=== PATIENT | female | born 1980 | race Caucasian/White ===

== ENCOUNTER → 2019-04-20 | Outpatient (CLI) | payer BC | LOC: COL.VAS 14:01 | DX: M79.661 Pain in right lower leg (principal) ==

== ENCOUNTER 2019-12-25 10:44 | Emergency (ER) | payer BC ==
[~2019-12-25] VITALS: Ht 180.3 cm; Wt 104.5 kg
[2019-12-25 10:57] VITALS: BP 110/71; TEMP 98
[2019-12-25 13:02] VITALS: PULSE 107
== END 2019-12-25 13:02 | disposition home or self-care (01) ==
LOC: COL.ER 10:44
DX: H92.02 Otalgia, left ear (principal)

== ENCOUNTER 2023-01-21 17:56 | Inpatient (IN) | payer BC ==
[~2023-01-21] VITALS: Ht 180.3 cm; Wt 113.6 kg
[2023-01-21 18:31] LABS: BASO % 0.2 % (0.0-2.0); EOS % 0.1 % (0.0-4.0); GRAN % 88.8 % (42.2-75.2); HEMATOCRIT 39.7 % (37.0-47.0); HEMOGLOBIN 13.2 g/dl (12.5-16.0); LYMPH # 1.3 K/mm3 (1.2-3.4); LYMPH % 7.3 % (20.0-51.0); MEAN CELL VOLUME 85 fl (80.0-100.0); MEAN CORPUSCULAR HEMOGLOBIN 28 pg (27-31); MEAN CORPUSCULAR HGB CONC 33 g/dl (33.0-37.0); MEAN PLATELET VOLUME 8.8 fl (7.4-10.4); MONO # 0.6 K/mm3 (0.1-0.6); MONO % 3.3 % (1.7-9.3); PLATELET COUNT 552 K/mm3 (130-400); REDCELL DISTRIBUTION WIDTH-CV 14.3 % (11.5-14.5)
[2023-01-21 18:45] LABS: COLLECTION METHOD CLEAN CATCH
[2023-01-21 18:54] LABS: MUCOUS Present (NOT PRESENT); URINE APPEARANCE Cloudy (CLEAR/HAZY); URINE BACTERIA Rare /hpf (NONE SEEN); URINE COLOR Yellow (YELLOW); URINE RBC 0-2 /hpf (0-2)
[2023-01-21 18:55] LABS: PH 5.5 (5-8); URINE BLOOD TRACE-LYSED (NEGATIVE); URINE GLUCOSE Negative (NEGATIVE); URINE KETONE 2+ (NEGATIVE); URINE NITRATE Negative (NEGATIVE); URINE PROTEIN(semi-quant) 2+ (NEGATIVE)
[2023-01-21 19:06] LABS: CALCIUM 9.7 mg/dL (8.4-10.2); CREATININE, serum 0.99 mg/dL (0.57-1.11); POTASSIUM 3.2 mmol/L (3.5-4.5); TOTAL PROTEIN 7.9 gm/dL (6.2-8.1)
[2023-01-21] MEDS ORDERED: ATIVAN 0.50.5 MG/TAB PO (20:55)
[2023-01-21 21:22] LABS: CHOLESTEROL RISK RATIO 2.9
[2023-01-21 21:23] VITALS: BP 140/80; PULSE 97; TEMP 98.6
--- NOTE | 2023-01-21 21:23 | NUR ---
RECEIVED REPORT FROM Anjel MUNOZ, ERROL. WAITING FOR PATIENT ARRIVAL TO UNIT FOR ADMIT TO ROOM 331.
--- NOTE | 2023-01-21 21:36 | NUR ---
PATIENT ARRIVE TO ROOM 331 PER W/C TRANSPORTED BY Anjel MUNOZ. INT SITE TO [facility] IN PLACE. REPORTS SOME PAIN TO EPIGASTRIC AREA OF 8/10.
[2023-01-21 22:50] LABS: INR 1.2 (0.8-3.0); PROTHROMBIN TIME 13.5 SECONDS (9.7-12.8)
[2023-01-21 23:20] VITALS: BP 125/70; PULSE 84; TEMP 98.9
--- NOTE | 2023-01-22 02:21 | NUR ---
PATIENT REPORTS PAIN LEVEL OF 7/10, REFUSED OFFER OF PAIN MEDS AT THIS TIME, ENCOURAGED PATIENT TO LET RN KNOW IF SHE CHANGES HER MIND AND WANTS PAIN MEDS. PATIENT UP IN ROOM TO BATHROOM WITH NO REPORTED PROBLEMS OR COMPLAINTS. DENIES NAUSEA AT THIS TIME.
[2023-01-22 03:17] VITALS: BP 120/74; PULSE 97; TEMP 98.2
[2023-01-22 06:44] LABS: BASO % 0.1 % (0.0-2.0); EOS % 0.1 % (0.0-4.0); GRAN # 12.6 K/mm3 (1.4-6.5); HEMOGLOBIN 11.7 g/dl (12.5-16.0); LYMPH # 1.4 K/mm3 (1.2-3.4); LYMPH % 9.6 % (20.0-51.0); MEAN CELL VOLUME 85 fl (80.0-100.0); MEAN CORPUSCULAR HEMOGLOBIN 29 pg (27-31); MEAN CORPUSCULAR HGB CONC 34 g/dl (33.0-37.0); MONO # 0.6 K/mm3 (0.1-0.6); MONO % 3.9 % (1.7-9.3); PLATELET COUNT 490 K/mm3 (130-400); REDCELL DISTRIBUTION WIDTH-CV 14.5 % (11.5-14.5)
[2023-01-22 06:50] LABS: HEMATOCRIT 34.8 % (37.0-47.0)
[2023-01-22 07:00] LABS: ALBUMIN 3.5 gm/dL (3.5-5.0); CALCIUM 8.8 mg/dL (8.4-10.2); CREATININE, serum 0.86 mg/dL (0.57-1.11); POTASSIUM 3.6 mmol/L (3.5-4.5); TOTAL PROTEIN 6.7 gm/dL (6.2-8.1)
--- NOTE | 2023-01-22 07:13 | NUR ---
CHANGE OF SHIFT REPORT GIVEN TO DAY SHIFT RNGUILLERMINA.
[2023-01-22 07:19] VITALS: BP 127/82; PULSE 95; TEMP 98.9
--- NOTE | 2023-01-22 09:20 | NUR ---
Initial visit; Patient thanked Voice Instructor for looking in on her and offering prayer and God's blessings. Patient has been experiencing pain and nausea. Voice Instructor will follow up with Rosalie.
--- NOTE | 2023-01-22 09:51 | NUR ---
Patient was admitted to [facility] on 01-21-23. Drywall Metal Stud Worker met with Patient at bedside to conduct CAre Managment Assessment and discuss discharge planning. PAtient verrified that she lives alone in [place], [place] and that the best familial point of contact is her mother, Zoey. PAtient reports that her PC Is Dr. Ventura and that her insurance carrier is [employer]. Patient states that [facility] is her preferred pharmacy. Patient denies the use of O2, DME, and home health services prior to admission. Patient reports that she is not interested in advanced directives at this time.
[2023-01-22 11:24] VITALS: BP 128/75; PULSE 94; TEMP 98.9
[2023-01-22 15:47] VITALS: BP 131/83; PULSE 99; TEMP 99.3
--- NOTE | 2023-01-22 19:00 | NUR ---
Shift summary: Pt Ox4, VSS, afebrile. Pain to epigastric/mid-abdominal area with decreasing pain throughout shift. Continued on IV dilaudid as NPO was d/c at 1700. IV Fluid continues, decreased to 75ml/hr per order once started on CLD. Pt tolerates diet order well.
[2023-01-22 19:41] VITALS: BP 132/81; PULSE 95; TEMP 98
--- NOTE | 2023-01-22 21:00 | NUR ---
PT RESTING IN BED. HOB ELEVATED. PT HAS A VERY FLAT AFFECT. PT RELATES SHE IS SAD. PT NOT SURE IF SHE SHOULD GET HER GB DONE WHILE SHE'S IS HERE. PT DENIES NAUSEA OR ABD PAIN. BUT C/O HEADACHE. GAVE TYLENOL. PT GIVING VERY SLOW FLAT TWO WORD ANSWER. UP TO BR. VOIDED. NO OTHER NEEDS AT THIS TIME. CALL LIGHT IN REACH.
[2023-01-22 23:14] VITALS: BP 141/78; PULSE 98; TEMP 99.8
--- NOTE | 2023-01-22 23:38 | NUR ---
PT C/O ABD PAIN LEVEL 8. SEE MAR FOR DILAUDID. DENIES NAUSEA. PT REPORTS WANTS TO TALK TO DR TOMORROW TO GO AHEAD AND GET SURGERY DONE. PT ANXIOUS. CALL LIGHT IN REACH.
--- NOTE | 2023-01-23 00:30 | NUR ---
PT SLEEPING. NO DISTRESS. NO EVIDENCE OF PAIN.
[2023-01-23 03:44] VITALS: BP 140/78; PULSE 105; TEMP 100.3
--- NOTE | 2023-01-23 06:40 | NUR ---
PT C/O CONTINUED PANTOJA. DECLINED DILAUDID. WANTS TO WAIT UNTIL COMES IN. GAVE TYLENOL EARLIER.
[2023-01-23 07:14] LABS: BASO % 0.2 % (0.0-2.0); EOS % 0.2 % (0.0-4.0); GRAN # 16.2 K/mm3 (1.4-6.5); GRAN % 84.7 % (42.2-75.2); HEMOGLOBIN 10.9 g/dl (12.5-16.0); LYMPH # 1.7 K/mm3 (1.2-3.4); LYMPH % 8.9 % (20.0-51.0); MEAN CELL VOLUME 86 fl (80.0-100.0); MEAN CORPUSCULAR HEMOGLOBIN 28 pg (27-31); MEAN CORPUSCULAR HGB CONC 33 g/dl (33.0-37.0); MEAN PLATELET VOLUME 9.2 fl (7.4-10.4); MONO # 1.1 K/mm3 (0.1-0.6); MONO % 5.6 % (1.7-9.3); PLATELET COUNT 440 K/mm3 (130-400); RED BLOOD COUNT 3.86 M/mm3 (4.10-5.30); REDCELL DISTRIBUTION WIDTH-CV 14.8 % (11.5-14.5)
[2023-01-23 07:17] LABS: HEMATOCRIT 33.3 % (37.0-47.0)
[2023-01-23 07:29] LABS: ALBUMIN 3.2 gm/dL (3.5-5.0); CALCIUM 8.8 mg/dL (8.4-10.2); CREATININE, serum 0.75 mg/dL (0.57-1.11); POTASSIUM 3.3 mmol/L (3.5-4.5); TOTAL PROTEIN 6.5 gm/dL (6.2-8.1)
[2023-01-23 08:00] VITALS: BP 132/80; PULSE 99; TEMP 98.7
--- NOTE | 2023-01-23 08:31 | NUR ---
Pt reports continued abdominal pain and abdomen feeling "bloated". Reports pain 7/10. Is given IV dilaudid and ativan per PRN orders. Is concerned about how she will control pain upon d/c to home prior to returning for OP surgical intervention. Discuss switching to PO pain meds vs IV for return home. Pt reports good PO intake without N/V and urinating without difficulty.
--- NOTE | 2023-01-23 09:39 | NUR ---
Initial visit; Patient thanked High School Foreign Language Tutor for coming in and when High School Foreign Language Tutor asked what she could do for patient this morning she simply said "just what you are doing." High School Foreign Language Tutor offered a [place] from [phone] and let her know High School Foreign Language Tutor is always available and wishes her healing.
--- NOTE | 2023-01-23 09:58 | NUR ---
Antibiotics in R forearm complete, line disconnected and flushed with 5ml NS. ALEXANDER García notified
[2023-01-23 12:00] VITALS: BP 129/70; PULSE 100; TEMP 99.3
[2023-01-23 15:44] VITALS: BP 113/64; PULSE 97; TEMP 98.8
[2023-01-23 19:08] VITALS: BP 128/75; PULSE 102; TEMP 99.4
--- NOTE | 2023-01-23 21:00 | NUR ---
PT RESTING IN BED. C/O ABD AIDarius AND PANTOJA. NOTIFIED NICOLE AGUILAR NEEDING PO NARCOTIC. TYLENOL INEFFECTIVEB AND DECLINED DILAUDID. SEE NEW ORDER. NS INFUSING TO LT ARM AT 75CC/HR. DENIES NAUSEA. PASSING LG AMT OF FLATUS. CALL LIGHT IN REACH. BED ALARM SET.
[2023-01-23 23:42] VITALS: BP 130/77; PULSE 104; TEMP 99.3
[2023-01-24] VITALS (13 sets, daily range): BP systolic 113–142; BP diastolic 66–85; PULSE 70–103; TEMP 97.4–99.7
--- NOTE | 2023-01-24 04:52 | NUR ---
PT SIGNED SURGERY COMSENT. DENIES QUESTIONS. PREOP CHECKLIST COMPLETED. IV TO LT HAND INFILTRATED. DC'D AT THIS TIME. INT NEEDLE TO RT AC FLUSHES WELL. CONTINUED IVF'S AND ZOSYN. LR READY TO HANG FOR PREOP. PT CHANGED TO CLEAN GOWN AND SLIPPERS.
[2023-01-24 07:06] LABS: BASO # 0.1 K/mm3 (0.0-0.2); BASO % 0.3 % (0.0-2.0); EOS # 0.1 K/mm3 (0.0-0.7); EOS % 0.7 % (0.0-4.0); HEMOGLOBIN 10.7 g/dl (12.5-16.0); LYMPH # 2.5 K/mm3 (1.2-3.4); LYMPH % 13.9 % (20.0-51.0); MEAN CELL VOLUME 85 fl (80.0-100.0); MEAN CORPUSCULAR HEMOGLOBIN 28 pg (27-31); MEAN CORPUSCULAR HGB CONC 33 g/dl (33.0-37.0); MEAN PLATELET VOLUME 9.3 fl (7.4-10.4); MONO # 1.2 K/mm3 (0.1-0.6); MONO % 6.7 % (1.7-9.3); PLATELET COUNT 453 K/mm3 (130-400); RED BLOOD COUNT 3.78 M/mm3 (4.10-5.30); REDCELL DISTRIBUTION WIDTH-CV 14.5 % (11.5-14.5)
[2023-01-24 07:08] LABS: HEMATOCRIT 32.3 % (37.0-47.0)
--- NOTE | 2023-01-24 07:16 | NUR ---
0720 WHEN LOOKING FOR PAIN PRN PAIN MEDICATION ORDERS, THIS RN NOTICED IC GREEN SHOWN NOT GIVEN. CALL PLACED TO PHARMACY THAT DOSE IS NEEDED STILL.
[2023-01-24 07:17] LABS: ALBUMIN 3.1 gm/dL (3.5-5.0); BILIRUBIN,TOTAL 0.8 mg/dL (0.2-1.2); CALCIUM 8.8 mg/dL (8.4-10.2); CREATININE, serum 0.75 mg/dL (0.57-1.11); MAGNESIUM 1.8 mg/dL (1.6-2.6); POTASSIUM 3.6 mmol/L (3.5-4.5); TOTAL PROTEIN 6.7 gm/dL (6.2-8.1)
--- NOTE | 2023-01-24 07:20 | NUR ---
UPON ENTERING PATIENTS ROOM, SHE WAS SITTIGN AT THE SIDE OF THE BED, CLIPPING HER TOE NAILS. PATIENT ASKED RN IF SHE COULD HAVE PAIN MEDICINE. I ASKED THE PATIAENT ON A SCALE OF ONE TO TEN , TEN BEING THE WORST, WHAT SHE WOULD RATE HER PAIN. THE PATIENT STATED "8 OUT OF 10, IN MY ABDOMEN." REED MEDICAITON GIVEN. SEE MR
[2023-01-24] MEDS ORDERED: NORCO 325 MG-51 TAB PO (09:57)
--- NOTE | 2023-01-24 10:50 | NUR ---
PATIENT ARRIVED AWAKE AND ALERT AND IN STABLE CONDITION FROM PACU. POST OP VITALS INITIATED. WARM BLANKET APPLIED TO ABD. X5 LAPSITES WITH BANDAIDS, CLEAN DRY AND INTACT.
--- NOTE | 2023-01-24 13:20 | NUR ---
ONE HOUR LEFT ON ANTIOBIOTIC THEN WILL ASSIST PATIENT TO GO FOR A WALK. LUNCH ORDERED. WILL CONT TO MONITOR PATIENTS PROGRESS AFTER SURGERY.
--- NOTE | 2023-01-24 13:29 | NUR ---
ORNELAS CATHETER DISCONTINUED WITH NO COMPLICATIONS. PATIENT TOLERATED WELL.
--- NOTE | 2023-01-24 19:30 | NUR ---
PT RESTING IN BED. CHEERRFUL. FEELS GOOD. PAIN CONTROLLED. UP TO BR INDEPENDENTLY. CALL LIGHT IN REACH.
[2023-01-25 01:47] VITALS: BP 122/49; PULSE 88; TEMP 98.3
--- NOTE | 2023-01-25 01:48 | NUR ---
PT C/O MIDCHEST PAIN. LEVEL 4. CONSTANT PRESSURE "TIGHT" FEELING. VSS. HR IRREG AND THEN REG, NO DYSPNEA. CALLED SIS AGUILAR, SEE ORDER FOR EKG AND ASA. NOTIFIED RT FOR EKG.
--- NOTE | 2023-01-25 02:30 | NUR ---
PT STILL AWAKE. NO NEEDS.
[2023-01-25 03:52] VITALS: BP 136/86; PULSE 87; TEMP 98.4
--- NOTE | 2023-01-25 07:00 | NUR ---
PATIENT AWAKE AND ALERT AND IN A PLEASANT MOOD TODAY. PATIENT IS CURRENTLY PACKING UP HER BELONGINGS AND STATED SHE IS READY TO GO. PATIENT VOICES FEELING THOUGH HER PAIN IS CONTROLLED, AND SHE HAS NO ISSUES WITH N,V BEFORE OR AFTER EATING. CALL LIGHT WITH IN REACH. PATIENT AWARE WE ARE AWAITING ROUNDS TO SEE IF SHE CAN DISCHARGE TODAY.
[2023-01-25 07:10] LABS: BILIRUBIN,TOTAL 0.5 mg/dL (0.2-1.2); CALCIUM 9.3 mg/dL (8.4-10.2); CREATININE, serum 0.79 mg/dL (0.57-1.11); POTASSIUM 3.8 mmol/L (3.5-4.5); TOTAL PROTEIN 6.9 gm/dL (6.2-8.1)
[2023-01-25 07:27] VITALS: BP 125/76; PULSE 88; TEMP 98.6
[2023-01-25 07:33] LABS: BASO % 0.2 % (0.0-2.0); GRAN # 16.2 K/mm3 (1.4-6.5); GRAN % 86.9 % (42.2-75.2); HEMOGLOBIN 10.3 g/dl (12.5-16.0); LYMPH # 1.4 K/mm3 (1.2-3.4); LYMPH % 7.5 % (20.0-51.0); MEAN CELL VOLUME 85 fl (80.0-100.0); MEAN CORPUSCULAR HEMOGLOBIN 29 pg (27-31); MEAN CORPUSCULAR HGB CONC 34 g/dl (33.0-37.0); MEAN PLATELET VOLUME 9.5 fl (7.4-10.4); MONO # 0.9 K/mm3 (0.1-0.6); MONO % 4.8 % (1.7-9.3); PLATELET COUNT 480 K/mm3 (130-400); REDCELL DISTRIBUTION WIDTH-CV 14.5 % (11.5-14.5)
[2023-01-25 07:37] LABS: HEMATOCRIT 30.7 % (37.0-47.0)
[2023-01-25] MEDS ORDERED: AMOXICILLIN 8751 TAB PO (08:55)
--- NOTE | 2023-01-25 10:15 | NUR ---
PATIENT IV DISCONTINUED.
--- NOTE | 2023-01-25 10:25 | NUR ---
KAYLYN GIVEN DISCHARGE INSTRUCTIONS AND EDUCATION. ALL QUESTIONS ANSWERED. NEW MEDICATIONS AND FOLLOW UP APTS REVIEWED. PATIENT VERBALIIZED UNDERSTANDING OF THE ABOVE, AND ALSO IS AWARE OF CALLING FOR HER PCP FOLLOW UP AND GI FOLLOWUP.
--- NOTE | 2023-01-25 10:40 | NUR ---
PATIENT TAKEN TO ER ENTRANCE VIA WHEEL CHAIR BY THIS RN AND PCT. PATIEMIN LEFT IN STABLE CONDITION WITH A FAMILY MEMBER.
== END 2023-01-25 10:40 | disposition home or self-care (01) | DRG 418 ==
LOC: COL.ER 17:56 → SURG 20:48
PROVIDERS: Emergency Medicine; Nurse Practitioner Family; Physician Assistant; Surgery; ADMIT Hospitalist
PROC: 8E0W4CZ Robotic Assisted Procedure of Trunk Region, Percutaneous Endoscopic Approach (ICD-10-PCS; 2023-01-24)
PROC: 0FT44ZZ Resection of Gallbladder, Percutaneous Endoscopic Approach (ICD-10-PCS; principal; 2023-01-24 08:30)
DX: K85.10 Biliary acute pancreatitis without necrosis or infection (principal); R65.10 Systemic inflammatory response syndrome (SIRS) of non-infectious origin without acute organ dysfunction; E87.6 Hypokalemia; F41.9 Anxiety disorder, unspecified; D75.839 Thrombocytosis, unspecified; R73.9 Hyperglycemia, unspecified; F32.A Depression, unspecified; K80.20 Calculus of gallbladder without cholecystitis without obstruction; K76.0 Fatty (change of) liver, not elsewhere classified; Z87.891 Personal history of nicotine dependence
CPT/HCPCS: J0330; J1100; J1170; J1885; J2060; J2250; J2270; J2370; J2405; J2543; J2704; J3010; J3480; J7030; Q9967